=== PATIENT | male | born 1950 | race African-American/Black ===

== ENCOUNTER → 2018-09-01 | Outpatient (CLI) | payer MEDICARE, OTHER ==
[~2018-09-01] VITALS: Ht 180.3 cm; Wt 96.8 kg
[2018-09-01] VITALS (10 sets, daily range): BP systolic 140–164; BP diastolic 78–92; PULSE 92–106
[~2018-09-01] MED LIST: EPA FISH OIL1 SGL PO; JANUVIA50 MG PO; LIPITOR20 MG PO; MICARDIS40 MG PO; PLENDIL10 MG PO; SYNTHROID0.175 MG PO; SYNTHROID0.2 MG/TAB PO; ZYRTEC 10MG10 MG PO
[2018-09-01 12:23] LABS: INR 0.9 (0.8-3.0); PROTHROMBIN TIME 10.7 SECONDS (9.7-12.8)
--- NOTE | 2018-09-01 12:35 | NUR ---
pt to us for liver biopsy, monitors applied.
--- NOTE | 2018-09-01 12:42 | NUR ---
Specimens obtained by Dr Almaguer and placed in formalin. Specimen labeled.
--- NOTE | 2018-09-01 14:53 | NUR ---
pt out to car per wheelchair, denies pain at this time. Pt and into car without difficulty.
== END ==
LOC: COL.RAD 11:49
PROVIDERS: Internal Medicine Gastroenterology
DX: R79.0 Abnormal level of blood mineral (principal); R79.89 Other specified abnormal findings of blood chemistry; R52 Pain, unspecified

== ENCOUNTER → 2024-07-01 | Outpatient (CLI) | payer MEDICARE, OTHER | LOC: MHCPAIN 12:39 | DX: M54.16 Radiculopathy, lumbar region (principal); M54.50 Low back pain, unspecified; M96.1 Postlaminectomy syndrome, not elsewhere classified; Z79.01 Long term (current) use of anticoagulants; M43.16 Spondylolisthesis, lumbar region; E03.9 Hypothyroidism, unspecified; I10 Essential (primary) hypertension; E11.9 Type 2 diabetes mellitus without complications; Z79.84 Long term (current) use of oral hypoglycemic drugs | CPT/HCPCS: G0463 ==